=== PATIENT | male | born 1975 | race Caucasian/White ===

== ENCOUNTER 2017-01-30 17:39 | Inpatient (IN) | payer SELFPAY ==
[~2017-01-30] VITALS: Ht 185.4 cm; Wt 96.3 kg
--- NOTE | ~2017-01-30 | ST ---
[place], [place] EXERCISE STRESS TEST REPORT NAME: ALEXY MORA UNIT #: [id number] ROOM: 405 DOCTOR: CLARITA ALFONSO,VIRIDIANA BIRTHDATE: [birth year] DOS: 01/31/2017 EXERCISE NUCLEAR MYOCARDIAL PERFUSION STUDY INDICATIONS: Precordial chest pain. PROCEDURE: The patient walked 10 minutes 40 seconds on a full Everett protocol stress test and stopped for fatigue. He had no chest pain. He achieved a maximum heart rate of 160, which represented 89% of his maximum predicted heart rate at a workload of 12.5 METs. The resting blood pressure of 112/80 angeline to 198/76. His Bailey treadmill score was 10.6 indicating a low risk for coronary artery disease. One minute prior to completion of exercise protocol, isotope was injected. IMPRESSION: 1. Excellent exercise capacity without chest pain or diagnostic electrocardiographic changes. 2. Bailey treadmill score 10.6 consistent with low risk of heart disease. 3. Isotope injected. Please see separate imaging report for further details of the patient's stress test results. VIRIDIANA OTTO MD CM:STRESS:EXERCISE STRESS TEST REPORT [id number] VIRIDIANA OTTO MD
--- NOTE | ~2017-01-30 | EKG ---
[place], [place] ELECTROCARDIOGRAM REPORT NAME: ALEXY MORA UNIT #: [id number] ROOM: 405 DOCTOR: VIRIDIANA OTTO MD BIRTHDATE: [birth year] DOS: 01/30/2017 TIME: 05:44 p.m. FINDINGS: 1. Normal sinus rhythm at rate of 86. 2. Normal electrocardiogram. VIRIDIANA OTTO MD CM:EKGRPT:ELECTROCARDIOGRAM REPORT [id number] VIRIDIANA OTTO MD
[~2017-01-30 17:39] MED LIST: COMPAZINE10 MG PO; DAYPRO600 M1 PO; FLEXERIL5 MG PO; MOTRIN800 MG PO; PERCOCET 325 MG1 TA3 PO; ROBAXIN750 MG PO
[2017-01-30 17:44] VITALS: BP 117/82
[2017-01-30 17:59] LABS: BASO # 0.1 10*3/uL (0.0-0.1); BASO % 0.6 % (0.0-1.0); EOS # 0.1 10*3/uL (0.0-0.4); EOS % 1.3 % (1.0-4.0); HEMATOCRIT 41.7 % (42.0-52.0); HEMOGLOBIN 14.9 g/dl (14.0-18.0); IG # 0.1 10*3/uL (0.0-0.1); LYMPH % 19.3 % (27.0-41.0); MEAN CELL VOLUME 88.9 fl (80.0-94.0); MEAN CORPUSCULAR HGB 31.8 pg (27.0-31.0); MEAN CORPUSCULAR HGB CONC 35.7 g/dl (33.0-37.0); MEAN PLATELET VOLUME 11.2 fl (9.6-12.3); MONO # 0.9 10*3/uL (0.1-1.0); MONO % 8.5 % (3.0-9.0); NEUT # 7.2 10*3/uL (2.3-7.9); PLATELET COUNT AUTOMATED 289 10*3/uL (130-400); RED BLOOD COUNT 4.69 10*6/uL (4.50-5.90); WHITE BLOOD COUNT 10.4 10*3/uL (4.8-10.8)
[2017-01-30 18:13] LABS: INTERNATIONAL NORM RATIO 1.1 (2.0-3.5); PROTHROMBIN TIME 11.2 SECONDS (9.0-12.4)
[2017-01-30 18:15] LABS: ALBUMIN 3.4 gm/dl (3.1-4.5); ALKALINE PHOSPHATASE 101 U/L (45-117); BILIRUBIN, TOTAL 0.3 mg/dl (0.2-1.0); BUN 13 mg/dl (7-24); C-REACTIVE PROTEIN 0.29 MG/DL (0-0.3); CARBON DIOXIDE 23 mmol/L (21-32); CHLORIDE 108 mmol/L (98-107); CKMB 0.8 ng/ml (0.5-3.6); CPK 72 U/L (39-308); EST GLOM FILT AFRICAN AMERICAN > 60 ml/min; GLUCOSE 122 mg/dL (65-99); POTASSIUM 3.7 mmol/L (3.5-5.1); SGOT/AST 12 IU/L (3-35); SGPT/ALT 15 U/L (12-78); SODIUM 142 mmol/L (136-145); TOTAL PROTEIN 7.1 gm/dL (6.4-8.2)
[2017-01-30 18:16] LABS: TROPONIN I < 0.015 ng/ml (<0.045)
[2017-01-30 18:36] VITALS: BP 112/64
[2017-01-30 19:11] VITALS: BP 131/87
[2017-01-30 19:56] LABS: LA>2 REFLEX 2 HR DRAW NOW
[2017-01-30 20:00] VITALS: BP 112/68
[2017-01-31] VITALS: BP 119/74
[2017-01-31 06:02] LABS: BASO # 0.1 10*3/uL (0.0-0.1); BASO % 0.6 % (0.0-1.0); EOS # 0.2 10*3/uL (0.0-0.4); EOS % 2.9 % (1.0-4.0); HEMATOCRIT 41.1 % (42.0-52.0); HEMOGLOBIN 14.2 g/dl (14.0-18.0); IG # 0.1 10*3/uL (0.0-0.1); LYMPH % 24.3 % (27.0-41.0); MEAN CELL VOLUME 91.1 fl (80.0-94.0); MEAN CORPUSCULAR HGB 31.5 pg (27.0-31.0); MEAN CORPUSCULAR HGB CONC 34.5 g/dl (33.0-37.0); MEAN PLATELET VOLUME 10.8 fl (9.6-12.3); MONO # 0.9 10*3/uL (0.1-1.0); MONO % 10.9 % (3.0-9.0); NEUT % 59.9 % (47.0-73.0); PLATELET COUNT AUTOMATED 265 10*3/uL (130-400); RED BLOOD COUNT 4.51 10*6/uL (4.50-5.90); RED CELL DISTRI WIDTH 11.9 % (0-14.5); WHITE BLOOD COUNT 8.4 10*3/uL (4.8-10.8)
[2017-01-31 06:19] LABS: HEMOGLOBIN A1c 5.3 % (4.8-5.6)
[2017-01-31 06:32] LABS: CHLORIDE 110 mmol/L (98-107); POTASSIUM 3.7 mmol/L (3.5-5.1); SODIUM 144 mmol/L (136-145)
[2017-01-31 06:43] LABS: ALBUMIN 3.1 gm/dl (3.1-4.5); ALKALINE PHOSPHATASE 106 U/L (45-117); BILIRUBIN, TOTAL 0.2 mg/dl (0.2-1.0); BUN 11 mg/dl (7-24); CARBON DIOXIDE 26 mmol/L (21-32); CHOLESTEROL 139 mg/dL (<200); EST GLOM FILT AFRICAN AMERICAN > 60 ml/min; FREE T4 1.01 ng/dl (0.76-1.46); GLUCOSE 91 mg/dL (65-99); HDL CHOLESTEROL 36 mg/dl (40-60); LDL CHOLESTEROL 87 mg/dL (9-159); MAGNESIUM 2.3 mg/dL (1.5-2.1); PHOSPHOROUS 4.1 mg/dL (2.5-4.9); SGOT/AST 11 IU/L (3-35); SGPT/ALT 13 U/L (12-78); TOTAL PROTEIN 6.5 gm/dL (6.4-8.2); TRIGLYCERIDES 82 mg/dl (<150); VLDL CHOLESTEROL 16 mg/dL (6-40)
[2017-01-31 07:35] LABS: FOLIC ACID 7.86 ng/mL (>5.38)
[2017-01-31 08:00] VITALS: BP 101/67
[2017-01-31 12:00] VITALS: BP 114/78
[2017-01-31 16:00] VITALS: BP 125/80
== END 2017-01-31 18:51 | disposition home or self-care (01) | DRG 313 ==
LOC: ED 17:39 → EDHOLD 18:23 → 4E 18:23
PROVIDERS: Student in an Organized Health Care Education/Training Program
DX: R07.89 Other chest pain (principal); E87.2 Acidosis; E87.8 Other disorders of electrolyte and fluid balance, not elsewhere classified; R55 Syncope and collapse; R73.9 Hyperglycemia, unspecified; F17.200 Nicotine dependence, unspecified, uncomplicated; D72.810 Lymphocytopenia; E83.41 Hypermagnesemia; E66.3 Overweight; Z68.28 Body mass index [BMI] 28.0-28.9, adult; Z71.6 Tobacco abuse counseling; Z82.3 Family history of stroke; Z82.49 Family history of ischemic heart disease and other diseases of the circulatory system